=== PATIENT | female | born 1985 ===

== ENCOUNTER 2017-10-26 05:24 | Inpatient (IN) | payer OTHER ==
[2017-10-26 05:44] VITALS: BMI 23.1
[2017-10-26] MEDS ORDERED: Butorphanol Tartrate 1 MG/ML VIAL SLOW IVP PRN (05:48)
[2017-10-26] MEDS ORDERED: Docusate 100 MG CAP PO PRN (05:48)
[2017-10-26] MEDS ORDERED: Acetaminophen 500 MG TAB PO PRN (05:48)
[2017-10-26] MEDS ORDERED: Promethazine HCl 25 MG/ML VIAL IM PRN (05:48)
[2017-10-26] MEDS ORDERED: Ondansetron HCl/PF 4 MG/2 ML Vial IVP PRN ×4 (05:48→11:23)
[2017-10-26] MEDS ORDERED: Bicitra 30 ML UDCUP PO SCH (05:48)
[2017-10-26] MEDS ORDERED: CEFAZOLIN/Water 2 GM/20 ML SYRINGE SLOW IVP SCH (05:48)
[2017-10-26 06:27] LABS: Hemoglobin 12.3 g/dL (12.0-16.0); Mean Corpuscular HGB CONC 36.3 g/dL (32.0-36.0); Mean Corpuscular Hemoglobin 36.1 pg (27.0-31.0); Mean Corpuscular Volume 99.4 fL (78.0-98.0); Mean Platelet Volume 7.7 fL (7.4-10.4); Platelet Count 181 thou/uL (130-400); RBC Distribution Width 12.3 % (11.5-14.5); Red Blood Cell (RBC) Count 3.42 mill/uL (4.20-5.40); White Blood Cell (WBC) Count 10.3 thou/uL (4.8-10.8)
[2017-10-26 06:51] LABS: Syphilis Antibody Nonreactive (Nonreactive); Syphilis Antibody Index 0.04 S/CO (<1.00 Non-Reactive)
[2017-10-26 07:01] LABS: HBSAg Index 0.27 S/CO (0-0.99); Hep B Surf Ag Non-Reactive S/CO (NonReactive)
[2017-10-26] MEDS: Lactated Ringer's 1,000 ML IV SCH ×2 (07:09→07:23)
[2017-10-26] MEDS ORDERED: Morphine PF 1 MG/ML SYR ONE (07:21)
[2017-10-26] MEDS ORDERED: Ondansetron HCl/PF 4 MG/2 ML Vial ONE (07:22)
[2017-10-26] MEDS ORDERED: Oxytocin 10 UNITS/ML VIAL ONE (07:22)
[2017-10-26] MEDS ORDERED: ePHEDrine/0.9% NaCl/PF SYRINGE 50 mg/10 ml ONE ×2 (07:22→14:45)
[2017-10-26] MEDS ORDERED: Bupivacaine 0.75% W/DEXTROSE 8.25% 2 ML AMP ONE (07:34)
[2017-10-26] MEDS ORDERED: Lidocaine 1% PF 5 ML VIAL ONE (07:36)
[2017-10-26] MEDS ORDERED: Midazolam HCl 2 mg/2 ml Vial ONE (07:57)
[2017-10-26] MEDS ORDERED: Fentanyl 100 MCG/2 ML VIAL ONE (08:01)
[2017-10-26] MEDS ORDERED: Ketorolac Tromethamine 30 MG/ML VIAL IVP PRN (08:57)
[2017-10-26] MEDS ORDERED: diphenhydrAMINE 50 MG/ML VIAL IVP PRN (08:57)
[2017-10-26] MEDS ORDERED: Naloxone HCl 0.4 mg/ml Vial IV PRN (08:57)
[2017-10-26] MEDS ORDERED: Meperidine HCl/PF 25 MG/ML VIAL SLOW IVP PRN (08:57)
[2017-10-26] MEDS ORDERED: Eucerin (Mineral Oil/Petrolatum,White) 30 gm Jar TOP PRN (08:57)
[2017-10-26] MEDS ORDERED: Naloxone HCl 0.4 mg/ml Vial IVP PRN ×2 (08:57)
[2017-10-26] MEDS ORDERED: HYDROmorphone 2 MG/ML VIAL SLOW IVP PRN (08:57)
[2017-10-26] MEDS ORDERED: Ketorolac Tromethamine 30 MG/ML VIAL IVP SCH (09:00)
[2017-10-26] MEDS ORDERED: Communication Order-Pharmacy FS SCH (09:00)
[2017-10-26] MEDS ORDERED: Ketorolac Tromethamine 30 MG/ML VIAL ONE (09:23)
[2017-10-26] MEDS ORDERED: NS / Oxytocin 40 units/1000ml 1,000 ML ONE (10:53)
[2017-10-26] MEDS ORDERED: diphenhydrAMINE 25 MG CAP PO PRN (11:23)
[2017-10-26] MEDS ORDERED: Bisacodyl 10 MG SUPP PR PRN (11:23)
[2017-10-26] MEDS ORDERED: Lanolin Ointment 7 GM TUBE TOP PRN (11:23)
[2017-10-26] MEDS ORDERED: Adacel (T-DAP) 0.5 ML VIAL IM ONE (11:23)
[2017-10-26] MEDS ORDERED: NS / Oxytocin 40 units/1000ml 1,000 ML IV SCH (11:30)
[2017-10-26] MEDS: Docusate Calcium (SURFAK) 240 MG CAP PO SCH (20:51)
[2017-10-26] MEDS: Simethicone Chewable 80 MG TAB PO PRN (20:51)
[2017-10-26] MEDS: HYDROcodone/Acetaminophen 5/325 mg Tablet PO PRN (20:51)
[2017-10-26] MEDS ORDERED: Zolpidem Tartrate 5 MG TAB PO PRN (21:00)
[2017-10-26] MEDS ORDERED: Meperidine HCl/PF 25 MG/ML VIAL IM PRN (21:00)
[2017-10-26] MEDS: Ferrous Sulfate 325 MG TAB PO SCH (22:31)
[2017-10-27] MEDS: HYDROcodone/Acetaminophen 5/325 mg Tablet PO PRN ×5 (00:58→20:13)
[2017-10-27] MEDS: Ibuprofen 800 MG TAB PO SCH ×3 (05:15→21:38)
[2017-10-27 05:52] LABS: Hemoglobin 11.4 g/dL (12.0-16.0); Mean Corpuscular HGB CONC 35.2 g/dL (32.0-36.0); Mean Corpuscular Hemoglobin 36.1 pg (27.0-31.0); Mean Platelet Volume 7.2 fL (7.4-10.4); Platelet Count 134 thou/uL (130-400); RBC Distribution Width 12.3 % (11.5-14.5); Red Blood Cell (RBC) Count 3.17 mill/uL (4.20-5.40); White Blood Cell (WBC) Count 10.6 thou/uL (4.8-10.8)
[2017-10-27] MEDS: Prenatal Vitamin 1 TAB PO SCH (09:38)
[2017-10-27] MEDS: Docusate Calcium (SURFAK) 240 MG CAP PO SCH ×2 (09:38→21:38)
[2017-10-27] MEDS: Ferrous Sulfate 325 MG TAB PO SCH ×2 (09:39→21:37)
[2017-10-27] MEDS: Simethicone Chewable 80 MG TAB PO PRN (16:17)
[2017-10-28] MEDS: Ibuprofen 800 MG TAB PO SCH ×2 (05:26→14:12)
[2017-10-28 07:52] VITALS: BP 119/56; TEMP 98.1
[2017-10-28] MEDS: HYDROcodone/Acetaminophen 5/325 mg Tablet PO PRN ×2 (08:39→12:35)
[2017-10-28] MEDS: Prenatal Vitamin 1 TAB PO SCH (08:40)
[2017-10-28] MEDS: Ferrous Sulfate 325 MG TAB PO SCH (08:40)
[2017-10-28] MEDS: Docusate Calcium (SURFAK) 240 MG CAP PO SCH (08:40)
== END 2017-10-28 14:30 | disposition home or self-care (01) | DRG 766 ==
LOC: L&D 05:24 → 3SW 11:18
PROVIDERS: ADMIT Obstetrics & Gynecology; ATTEND Obstetrics & Gynecology
PROC: 10D00Z1 Extraction of Products of Conception, Low, Open Approach (ICD-10-PCS; principal; 2017-10-26)
DX: O34.211 Maternal care for low transverse scar from previous cesarean delivery (principal); Z3A.39 39 weeks gestation of pregnancy; Z37.0 Single live birth; O99.824 Streptococcus B carrier state complicating childbirth
CPT/HCPCS: 36415; 51702; 85027; 86780; 86850; 86900; 86901; 87340; J1885; J2001; J2250; J2274; J2405; J2590; J3010; J3490